=== PATIENT | male | born 1975 | race Caucasian/White ===

== ENCOUNTER 2017-04-13 01:10 | Emergency (ER) | payer OTHER ==
[2017-04-13 02:25] LABS: BASOPHIL% 0.3 % (0-2.5); HEMATOCRIT 46.9 % (38.0-50.0); HEMOGLOBIN 15.8 gm/dL (13.0-16.0); LYMPHOCYTE# 1.9 X10e3 (1.0-3.5); LYMPHOCYTE% 30.6 % (17.0-45.0); MEAN CELL VOLUME 89.6 FL (83-96); MEAN CORPUSCULAR HEMOGLOBIN 30.2 PG (28-34); MEAN CORPUSCULAR HGB CONC 33.8 g/dL (30-36); MONOCYTE# 0.7 X10e3 (0-1.0); MONOCYTE% 10.9 % (3.0-12.0); NEUTROPHIL# 3.7 X10e3 (1.5-7.1); NEUTROPHIL% 58.2 % (40-75); PLATELET COUNT 281 X10e3 (140-420); RED BLOOD COUNT 5.23 X10e (3.90-5.60); RED CELL DISTRIBUTION WIDTH 14.5 % (11.0-15.5); WHITE BLOOD COUNT 6.4 X10e3 (4.0-10.5)
[2017-04-13 02:26] LABS: DIFF IND NO
[2017-04-13 02:33] LABS: AMPHETAMINE NEG (NEG); BARBITURATES NEG (NEG); BENZODIAZEPINES NEG (NEG); COCAINE NEG (NEG); MARIJUANA NEG (NEG); OPIATES NEG (NEG); TRICYCLIC ANTIDEPRESSANTS NEG (NEG); U METHADONE NEG (NEG)
[2017-04-13 02:46] LABS: ALBUMIN SERUM 3.9 g/dL (3.5-5.0); ALKALINE PHOSPHATASE 84 U/L (32-92); ALT (SGPT) 47 U/L (10-40); AST (SGOT) 65 U/L (10-42); BILIRUBIN, DIRECT 0.1 mg/dL (0.0-0.2); BILIRUBIN,INDIRECT 0.5 mg/dL (0.0-0.9); BILIRUBIN,TOTAL 0.6 mg/dL (0.2-2.0); BLOOD UREA NITROGEN 10 mg/dL (9-23); BUN/CREATININE RATIO 11.11; CALCIUM SERUM 8.4 mg/dL (8.4-10.2); CARBON DIOXIDE 30 mmol/L (22-31); CHLORIDE 96 mmol/L (100-111); CREATININE SERUM 0.9 mg/dL (0.6-1.4); GLOM FILT RATE Estimated 104.2 mL/min (>60); GLUCOSE FASTING 186 mg/dL (70-110); PROTEIN TOTAL SERUM 7.2 g/dL (6.0-8.3); SALICYLATE <4.0 mg/dL; SODIUM 135 mmol/L (135-145)
[2017-04-13 02:47] LABS: ACETAMINOPHEN <10 ug/mL; ALCOHOL BLOOD 182 mg/dL ([, 0])
[2017-04-13 04:08] LABS: OSMOLALITY,SERUM 345 mOsmo/kg (280-300)
== END 2017-04-13 07:01 ==
LOC: CED 01:10
PROVIDERS: Nurse Practitioner Family
DX: T51.2X2A Toxic effect of 2-Propanol, intentional self-harm, initial encounter (principal); E11.9 Type 2 diabetes mellitus without complications; I10 Essential (primary) hypertension
CPT/HCPCS: 36415; 80048; 80076; 80307; 82947; 83930; 85025; 96360; 99285; G0480

== ENCOUNTER 2017-04-13 04:00 | Inpatient (IN) | payer OTHER ==
--- NOTE | ~2017-04-13 | PN ---
Unit #: [id number] #: [id number] Patient: ANTONETTE ZAVALETA [id number] [facility] [address] [place] [address] [id number] MR#: [id number] NAME: ANTONETTE ZAVALETA ROOM: [facility] Age: 41 Sex: M Admission Date: 04/13/2017 : 1975 Attending Physician: Remy Altman M.D. Admitting Physician: Remy Altman M.D. Primary Care Physician: Generic Doctor Not In System [facility] PROGRESS NOTES DATE OF SERVICE 04/15/17 DISCUSSION Mr. Potts is a 41-year-old male interviewed with the help of paint brush maker. Patient was pleasant, cooperative during interview, denied any complaint, reports making progress. Patient tolerating medication fairly well, still sad, depressed, anxious but able to contract for safety. COMPLETE REVIEW OF SYSTEMS Unremarkable. MENTAL STATUS EXAMINATION GENERAL APPEARANCE: Patient dressed casually. ATTENTION SPAN AND CONCENTRATION: Fair. Oriented in time, place and person. MOOD AND AFFECT: Sad, dysphoric. SPEECH: Monotone. THOUGHT PROCESS: Gary. Patient denied any thoughts of harming self or others, but guarded. RECENT AND REMOTE MEMORY: Poor. INSIGHT AND JUDGMENT: Poor. DIAGNOSES Mood disorder, NOS Major depressive disorder, recurrent Alcohol use disorder, moderate ASSESSMENT/PLAN Advised to continue with current medication and therapeutic protocol. If needed, consider further adjustment in medication. Dictated by... Racheal Daly/diane TD: 04/16/2017 13:43 JOB #: [id number] Unit #: [id number] #: [id number] Patient: ANTONETTE ZAVALETA [facility] PROGRESS NOTES Page 1 of 1 X Remy Altman MD X PROGRESS NOTE
--- NOTE | ~2017-04-13 | PA ---
Unit #: [id number] #: [id number] Patient: ANTONETTE ZAVALETA [id number] [facility] [address] [place] [address] [id number] I MR#: [id number] NAME: ANTONETTE ZAVALETA ROOM: P257 Age: 41 Sex: M Admission Date: 04/13/2017 : 1975 Date of Assessment: 04/14/2017 Attending Physician: Remy Altman M.D. Admitting Physician: Remy Altman M.D. Primary Care Physician: Generic Doctor Not In System PSYCHIATRIC ASSESSMENT INFORMANTS The patient reliability, fair informant and chart reliability, good. CHIEF COMPLAINT Alcohol abuse and depression. HISTORY OF PRESENT ILLNESS Mr. Potts is a 41-year-old male, presented with the above-mentioned complaint. The patient reported drinking almost daily for a long period of time, but has a good support system from and stepdaughter. The patient presented due to suicidal attempt almost 3 days ago, reported he drank 20 ounces of rubbing alcohol with the intent to kill himself. The patient reported feeling bad, sad, and depressed. The patient denied any current homicidal ideation. The patient needing inpatient admission at this time for psychiatric stabilization. PAST PSYCHIATRIC HISTORY Unremarkable for any history of any previous treatment. FAMILY HISTORY AND SOCIAL HISTORY The patient has a good support system. No history of any abuse or legal charges. MEDICAL HISTORY Remarkable for hypertension and diabetes. MEDICATION HISTORY None. ALLERGIES No known drug allergies. SUBSTANCE ABUSE HISTORY History of alcohol abuse as mentioned above. REVIEW OF SYSTEMS HEENT: Eyes, clear. Ears, nose, mouth, and throat; clear. CARDIOVASCULAR: Unremarkable. RESPIRATORY: Unremarkable. GI: Unremarkable. : Unremarkable. SKIN: Unremarkable. LYMPH NODE: Unremarkable. Unit #: [id number] #: [id number] Patient: ANTONETTE ZAVALETA NEUROLOGIC: Unremarkable. ENDOCRINE: Unremarkable. HEMATOLOGIC: Unremarkable. ALLERGIC/IMMUNOLOGIC: Unremarkable. MUSCULOSKELETAL: Muscle strength and tone, no atrophy or abnormal movement. Gait normal. MENTAL STATUS EXAMINATION CONSTITUTIONAL: Measurement of vital signs; temperature 98.7, heart rate 111, respiratory rate 19, oxygen saturation 95%, and blood pressure 153/94. Height 5 feet 3 inches and weight 192 pounds. GENERAL APPEARANCE: The patient dressed casually. The patient did not show any facial deformity. MUSCULOSKELETAL: Please see above. PSYCHIATRIC EXAMINATION Description of speech; regular rate, normal volume, and normal articulation. Description of thought process, goal directed. Description of association, intact. Description of abnormal psychotic thinking; the patient denied any hallucination or delusions, but sad and depressed. Description of the patient's judgment: Concerning everyday activity, poor. Social situation, poor. Concerning psychiatric condition, poor. Complete mental status examination; oriented in time, place, and person. Recent and remote memory, fair. Attention span and concentration, fair. Language, able to name object and repeat phrases. Fund of knowledge, fair. Vocabulary, fair. Mood and affect, sad and dysphoric. Insight and judgment, fair to poor. The patient was interviewed with the help of ecology professor. ASSETS AND LIABILITIES Assets, the patient is articulate and able to take care of his ADL. Liability; history of depression, substance abuse, and alcohol abuse. ADMITTING DIAGNOSES Psychiatric: Major depressive disorder, recurrent, severe, F33.2 and alcohol abuse, moderate to severe, F10.20. Secondary diagnosis: Deferred. Medical diagnoses: Hypertension and diabetes. Stressors: Psychosocial stressors. PSYCHIATRIC PLAN AND TREATMENT GOAL AND DISCHARGE PLAN 1. Advised to admit the patient on the inpatient unit. 2. Ordered labs; CBC, CMP, UA, and UDS. 3. Precaution for self-harm. 4. Advised to attend all the programing on the inpatient unit and I advised Celexa, trazodone, and Librium for a short time. The patient to continue with his Lipitor, Glucophage, and Zestril. If needed, consider further adjustment of medication. TREATMENT GOAL To attain euthymic mood, gain insight into his problem, and learn coping skills. DISCHARGE PLAN Unit #: [id number] #: [id number] Patient: ANTONETTE ZAVALETA Plan to stabilize the patient and consider followup in outpatient program. ESTIMATED LENGTH OF STAY 3 to 5 days. Dictated by... Racheal Daly/leland TD: 04/14/2017 17:54 JOB #: [id number] PSYCHIATRIC ASSESSMENT Page 1 of 1 X Remy Altman MD PSYCHIATRIC ASSESSMENT
--- NOTE | ~2017-04-13 | HP ---
Unit #: [id number] #: [id number] Patient: GLYNN THOMPSON [id number] [facility] [address] [place] [address] [id number] I MR#: [id number] NAME: GLYNN THOMPSON ROOM: P257 Age: 41 Sex: M Admission Date: 04/13/2017 : 1975 Attending Physician: Remy Altman M.D. Admitting Physician: Remy Altman M.D. Primary Care Physician: Generic Doctor Not In System HISTORY AND PHYSICAL HISTORY OF PRESENT ILLNESS Glynn is a 41-year-old gentleman admitted to [facility] because of his abuse of alcohol. I am interviewing him with his mud temperer. PAST MEDICAL HISTORY 1. Long history of alcohol abuse. 2. History of withdrawal seizures. 3. High blood pressure. 4. Diabetes mellitus. 5. Hyperlipidemia. PAST SURGICAL HISTORY Nothing reported. ALLERGIES No known drug allergies. SOCIAL HISTORY He does not smoke. Drinks rubbing alcohol on a daily basis and denies illicit drug use. FAMILY HISTORY Medically noncontributory. REVIEW OF SYSTEMS CONSTITUTIONAL: No fever or chills. HEENT: Denies any sore throat, ear pain or runny nose. CARDIOVASCULAR: Denies chest pain, irregular heart rhythm or palpitations. CHEST: Denies shortness of breath or cough. No hemoptysis. GASTROINTESTINAL: Denies nausea, vomiting, diarrhea or chronic constipation. ENDOCRINE: Denies history of increased thirst or urination. No recent significant weight loss or gain. GENITOURINARY: Denies dysuria, frequency, or hematuria. SKIN: Denies any rashes. HEMATOLOGIC: Denies history of increased bleeding or bruising. MUSCULOSKELETAL: Denies any hot, swollen joints. No generalized muscle pain. NEUROLOGIC: Denies problems with vision or speech. No frequent, severe headaches. No numbness, tingling or weakness in any extremities. Denies loss of bladder or bowel control. CURRENT MEDICATIONS Unit #: [id number] #: [id number] Patient: GLYNN THOMPSON 1. Detox protocol. 2. Glucophage 500 mg daily. 3. Zestril 20 mg daily. 4. Lipitor 10 mg q.h.s. PHYSICAL EXAMINATION GENERAL: Alert, well-nourished, in no apparent distress. VITAL SIGNS: Blood pressure 152/94, heart rate 100, respirations 16, temperature 98.6. WEIGHT: 192. HEIGHT: 5 feet 3 inches. SKIN: Warm and dry without rash or lesion. HEENT: Normocephalic. TMs not viewed. Oral and nasal passages clear. Conjunctivae clear. PERRLA. EOMs intact. NECK: Supple without lymphadenopathy or thyromegaly. HEART: Regular rate and rhythm without murmur. LUNGS: Clear. ABDOMEN: Soft, nontender. : Not done. EXTREMITIES: No evidence of cyanosis, clubbing or edema. Moves all without focal deficit. NEUROLOGICAL: Grossly within normal limits. Cranial Nerves: II: Visual mead are intact. III, IV AND : Extraocular movements are intact. Pupils are equal, round and reactive to light. V: Facial sensation is grossly normal. VII: Facial movements and expression are normal. VIII: Auditory acuity grossly intact. IX, X: Uvula is midline. Phonation is normal. XI: Patient shrugs shoulders and turns head normally. XII: Tongue protrudes in the midline. Sensory and Motor Function: Sensory and motor sensation is grossly normal. Motor: moves all extremities well. Coordination: Gait is normal. Deep Tendon Reflexes: Intact. IMPRESSION Psychiatric admission. RECOMMENDATIONS PSYCHIATRIC: Per psychiatrist. MEDICAL: See no contraindication to participate in facility's activities. MEDICAL PROGNOSIS Good. MEDICAL CONDITION Stable. Dictated by... Kassi More P.A.-C. for Racheal Drake/dina TD: 04/13/2017 23:17 JOB #: [id number] Unit #: [id number] #: [id number] Patient: GLYNN THOMPSON HISTORY AND PHYSICAL Page 1 of 1 X Kassi More HISTORY AND PHYSICAL
--- NOTE | ~2017-04-13 | DS ---
Unit #: [id number] #: [id number] Patient: ANTONETTE ZAVALETA [id number] [facility] [address] [place] [address] [id number] I MR#: [id number] NAME: ANTONETTE ZAVALETA ROOM: [facility] Age: 41 Sex: M Admission Date: 04/13/2017 : 1975 Discharge Date: 04/17/2017 Attending Physician: Remy Altman M.D. Primary Care Physician: Generic Doctor Not In System DISCHARGE SUMMARY REASON FOR ADMISSION Depression. HOSPITAL COURSE The patient was admitted to inpatient unit on 04/13/2017 and discharged on 04/17/2017. The patient was treated on the inpatient unit with group therapy, individual therapy, medication management. The patient was responsive to treatment. Subsequently, the patient was discharged with a plan to follow up in outpatient program. DISCHARGE MEDICATIONS Celexa 20 mg daily for depression, trazodone 50 mg at bedtime for sleep. DISCHARGE DIAGNOSES Psychiatric: Major depressive disorder, recurrent, F33.2; alcohol abuse, moderate, F10.20. Secondary diagnosis: Deferred. Medical diagnoses: Hypertension and diabetes. Stressors: Psychosocial stressors. DISCHARGE INSTRUCTIONS The patient to follow up in outpatient clinic as per social welfare administrator. CONDITION ON DISCHARGE The patient was pleasant and cooperative. Denied any psychotic symptom or any suicidal ideation. PROGNOSIS Guarded. DIET AND ACTIVITY As tolerated. Dictated by... Racheal Daly/leland Unit #: [id number] #: [id number] Patient: ANTONETTE ZAVALETA TD: 04/17/2017 15:23 JOB #: [id number] DISCHARGE SUMMARY Page 1 of 1 X Remy Altman MD X DISCHARGE SUMMARY
--- NOTE | ~2017-04-13 | PN ---
Unit #: [id number] #: [id number] Patient: ANTONETTE ZAVALETA [id number] [facility] [address] [place] [address] [id number] I MR#: [id number] NAME: ANTONETTE ZAVALETA ROOM: [facility] Age: 41 Sex: M Admission Date: 04/13/2017 : 1975 Attending Physician: Remy Altman M.D. Admitting Physician: Remy Altman M.D. Primary Care Physician: Generic Doctor Not In System [facility] PROGRESS NOTES DATE 04/16/2017 DISCUSSION Mr. Geller is a 41-year-old male, seen on 04/13/2017. The patient denied any complaints, as making progress. Denied any thoughts of harming self or others. REVIEW OF SYSTEMS Complete review of system unremarkable. MENTAL STATUS EXAMINATION General appearance, the patient dressed casually. Attention span and concentration, fair. Oriented in place and person. Mood and affect, sad and dysphoric. Speech, monotone. Thought process, concrete. The patient denied any thoughts of harming self or others. Recent and remote memory, poor. Insight and judgment, poor. DIAGNOSES 1. Mood disorder NOS. 2. Alcohol use disorder, moderate. ASSESSMENT/PLAN Advised to discontinue Librium. Continue with the other medications. If needed, will consider further adjustment of medication. Dictated by... Racheal Daly/veronique TD: 04/18/2017 12:06 JOB #: [id number] Unit #: [id number] #: [id number] Patient: ANTONETTE ZAVALETA PROGRESS NOTES Page 1 of 1 X Remy Altman MD PROGRESS NOTE
[2017-04-14 10:09] LABS: BILIRUBIN,TOTAL 1.3 mg/dL (0.2-2.0); BUN/CREATININE RATIO 15.55; CALCIUM SERUM 9.2 mg/dL (8.4-10.2); CREATININE SERUM 0.9 mg/dL (0.6-1.4); GLOM FILT RATE Estimated 104.2 mL/min (>60); POTASSIUM 4.2 mmol/L (3.5-5.1); PROTEIN TOTAL SERUM 7.1 g/dL (6.0-8.3)
[2017-04-14 10:20] LABS: URINE APPEARANCE CLEAR; URINE BILIRUBIN NEG (NEG); URINE BLOOD NEG (NEG); URINE COLOR DK YELLOW; URINE GLUCOSE 100 MG/DL (NEG); URINE KETONE NEG (NEG); URINE LEUKOCYTE ESTERASE NEG (NEG); URINE NITRATE NEG (NEG); URINE PH 7.5 (5-8); URINE PROTEIN 1+ (NEG); URINE SPECIFIC GRAVITY 1.021 (1.003-1.035)
[2017-04-14 10:23] LABS: URBCS1 AUWI 0-2 /[HPF] (0-2); URINE BACTERIA AUWI NEG (NEGATIVE); URINE SQUAMOUS EPITHELIAL CELL NONE SEEN /[HPF]; UWBCS1 AUWI 0-2 (0-5)
== END 2017-04-17 11:25 | disposition home or self-care (01) | DRG 885 ==
LOC: P2L 08:00
PROVIDERS: Psychiatry & Neurology Psychiatry
DX: F33.2 Major depressive disorder, recurrent severe without psychotic features (principal); E11.9 Type 2 diabetes mellitus without complications; I10 Essential (primary) hypertension; F10.20 Alcohol dependence, uncomplicated; E78.5 Hyperlipidemia, unspecified; F39 Unspecified mood [affective] disorder
CPT/HCPCS: 80053; 81003; 86592